=== PATIENT | male | born 1955 | race Caucasian/White ===

== ENCOUNTER 2016-11-11 17:29 | Emergency (ER) | payer MEDICARE ==
[~2016-11-11 17:29] MED LIST: EPINEPHrine 10 ML SYRINGE (0.1 MG/ML) ONE; LIDOCAINE 2% SYG (PF) 100 MG/5 ML ONE
--- NOTE | 2016-11-11 19:17 | ED ---
General Adult HPI - General Chief complaint: Cardiac Arrest/CPR Stated complaint: Cardiac Arrest Time Seen by Provider: 11/11/16 18:29 Source: EMS, RN notes reviewed, old records reviewed Mode of arrival: EMS - History of Present Illness Initial comments: This is a 61-year-old male to the ER for evaluation. Patient is brought in by EMS in regards cardiac arrest. Patient had EMS called by family who note who witnessed patient had significant shortness of breath. Patient was found to be in V. fib and was given 1 shock per EMS prior to arrival, history is otherwise obtained from EMS Review of Systems ROS Statement: Those systems with pertinent positive or pertinent negative responses have been documented in the HPI. ROS Other: All systems not noted in ROS Statement are negative. General Exam General appearance: obtunded, in distress Eye exam: Present: periorbital tenderness, other ENT exam: Present: normal exam, mucous membranes moist Neck exam: Present: normal inspection. Absent: tenderness, meningismus, lymphadenopathy Respiratory exam: Present: other (Apnea) Cardiovascular Exam: Present: other (No heart sounds) GI/Abdominal exam: Present: soft, normal bowel sounds. Absent: distended, tenderness, guarding, rebound, rigid Course - Reevaluation(s) Reevaluation #1: 11/11/16 on evaluation at 1807, patient is in PA, no breathing, no heart sounds , pupils fixed and dilated. Procedures - Intubation Time Out Performed: Yes Laryngoscope: All Size: 4 ET Tube Size: 7.5 ET Tube Uncuffed: Yes Tube Secured Location: teeth Tube Placement Confirmation: visualized tube passing through cords, equal breath sounds bilaterally Patient Tolerated Procedure: well Intubation Complications: none Medical Decision Making - Medical Decision Making 61 male the ER with ventricular fibrillation, V. fib arrest. After prolonged ACLS protocol and CPR, patient showed no improvement, no return of spontaneous circulation. Patient was pronounced at 1807 Critical Care Time Critical Care Time: Yes Total Critical Care Time: 55 Disposition Clinical Impression: Cardiac arrest Disposition: Condition: Critical Referrals: Ashu Bobo MD [Primary Care Provider] - 1-2 days Preliminary Cause of : CPA
== END 2016-11-11 20:11 | disposition expired ==
LOC: EDBD → EC 17:29
DX: I46.9 Cardiac arrest, cause unspecified (principal)
CPT/HCPCS: 99291; 31500; 92950; J2001; J0171